=== PATIENT | female | born 1975 | race Asian ===

== ENCOUNTER → 2019-03-18 | Outpatient (CLI) | payer OTHER ==
[2019-03-18 17:23] LABS: BASO # 0.1 (0.0-0.2); BASO % 0.9 % (0.0-2.0); EOS # 0.2 (0.0-0.7); EOS % 2.8 % (0-4.0); GRAN # 2.6 (1.4-6.5); GRAN % 48.8 % (42.2-75.2); HEMOGLOBIN 10.9 g/dl (12.5-16.0); LYMPH # 2.1 (1.2-3.4); LYMPH % 39.5 % (20.0-51.0); MEAN CELL VOLUME 87 fl (80.0-100.0); MEAN CORPUSCULAR HEMOGLOBIN 28 pg (27.0-31.0); MEAN CORPUSCULAR HGB CONC 32 g/dl (33.0-37.0); MEAN PLATELET VOLUME 10.1 fl (7.4-10.4); MONO # 0.4 (0.1-0.6); MONO % 7.8 % (1.7-9.3); PLATELET COUNT 364 K/mm3 (130-400); RED BLOOD COUNT 3.97 M/mm3 (4.10-5.30); REDCELL DISTRIBUTION WIDTH-CV 14.3 % (11.5-14.5)
[2019-03-18 17:30] LABS: ALBUMIN 3.8 gm/dL (3.5-5.0); BILIRUBIN,TOTAL 0.3 mg/dL (0.0-1.0); CALCIUM 8.9 mg/dL (8.4-10.2); CREATININE, serum 0.69 (0.52-1.25); POTASSIUM 4.1 mmol/L (3.4-5.0)
[2019-03-18 17:36] LABS: HEMATOCRIT 34.6 % (37.0-47.0)
[2019-03-18 17:59] LABS: THYROID STIMULATING HORMONE 3.23 uIU/mL (0.465-4.680)
== END ==
LOC: ZCOL.LAB 16:42
PROVIDERS: Family Medicine
DX: R53.83 Other fatigue (principal)

== ENCOUNTER → 2019-03-24 | Outpatient (CLI) | payer OTHER ==
[2019-03-24 18:02] LABS: ALANINE AMINOTRANSFERASE 9 U/L (9-52); AST,SGOT 15 U/L (15-37); IRON,SERUM 58 ug/dL (35-150)
[2019-03-24 18:06] LABS: TOTAL IRON BINDING CAPACITY 431 ug/dL (265-497)
[2019-03-24 18:08] LABS: RETIC # 0.06 M/mm3 (0.02-0.16); RETIC % 1.5 % (0.5-3.52)
[2019-03-24 18:33] LABS: FERRITIN 6 ng/mL (6-137)
[2019-03-25 01:22] LABS: FOLATE (FOLIC ACID) 9.5 ng/mL (7.0-31.4)
[2019-03-25 01:41] LABS: TRANSFERRIN 308 mg/dL (192-382)
== END ==
LOC: ZCOL.LAB 16:46
PROVIDERS: Family Medicine
DX: D64.9 Anemia, unspecified (principal); R74.0 Nonspecific elevation of levels of transaminase and lactic acid dehydrogenase [LDH]

== ENCOUNTER → 2019-06-10 | Outpatient (CLI) | payer OTHER ==
[2019-06-10 16:54] LABS: BASO % 0.5 % (0.0-2.0); EOS # 0.1 (0.0-0.7); EOS % 2.4 % (0-4.0); GRAN # 3.6 (1.4-6.5); HEMOGLOBIN 11.7 g/dl (12.5-16.0); LYMPH # 1.6 (1.2-3.4); LYMPH % 27.6 % (20.0-51.0); MEAN CELL VOLUME 89 fl (80.0-100.0); MEAN CORPUSCULAR HEMOGLOBIN 28 pg (27.0-31.0); MEAN CORPUSCULAR HGB CONC 32 g/dl (33.0-37.0); MEAN PLATELET VOLUME 10.1 fl (7.4-10.4); MONO # 0.4 (0.1-0.6); MONO % 7.3 % (1.7-9.3); PLATELET COUNT 368 K/mm3 (130-400); RED BLOOD COUNT 4.14 M/mm3 (4.10-5.30); REDCELL DISTRIBUTION WIDTH-CV 13.5 % (11.5-14.5)
[2019-06-10 16:55] LABS: HEMATOCRIT 36.7 % (37.0-47.0)
== END ==
LOC: ZCOL.LAB 16:28
PROVIDERS: Family Medicine
DX: D50.9 Iron deficiency anemia, unspecified (principal); D51.9 Vitamin B12 deficiency anemia, unspecified

== ENCOUNTER 2019-06-18 12:55 | Outpatient (RCR) | payer OTHER ==
[~2019-06-18] VITALS: Ht 170.2 cm; Wt 99.0 kg
[2019-06-18 13:33] VITALS: BP 129/70; PULSE 75; TEMP 98.8
[2019-06-18] MEDS ORDERED: TAYTULLA 1 MG-1 EACH PO (13:57)
[2019-06-18] MEDS ORDERED: DOXYCYCLINE 10100 MG PO (14:02)
[2019-06-18] MEDS ORDERED: ROBAFEN DM 10120 ML PO (14:02)
[2019-06-18] MEDS ORDERED: TESSALON P100 MG/CAP PO (14:03)
--- NOTE | 2019-06-26 11:30 | NUR ---
Pt called to cancel further apts.per pt she had reaction and told her to stop.Will notify physician.
== END 2019-06-26 11:31 | disposition home or self-care (01) ==
LOC: EUO 12:55
DX: D50.9 Iron deficiency anemia, unspecified (principal); T50.905A Adverse effect of unspecified drugs, medicaments and biological substances, initial encounter; Z79.899 Other long term (current) drug therapy
CPT/HCPCS: J2916

== ENCOUNTER 2019-08-26 03:48 | Emergency (ER) | payer OTHER ==
[~2019-08-26] VITALS: Ht 170.2 cm; Wt 92.7 kg
[~2019-08-26 03:48] MED LIST: B-121000 MCG PO; DOXYCYCLINE 10100 MG PO; MASON NATURAL325 MG PO; ROBAFEN DM 10120 ML PO; TAYTULLA 1 MG-1 EACH PO; TESSALON P100 MG/CAP PO
[2019-08-26 05:03] LABS: BASO % 0.5 % (0.0-2.0); EOS # 0.1 (0.0-0.7); EOS % 1.6 % (0-4.0); GRAN # 4.8 (1.4-6.5); GRAN % 58.4 % (42.2-75.2); HEMATOCRIT 36.4 % (37.0-47.0); HEMOGLOBIN 12.2 g/dl (12.5-16.0); LYMPH # 2.6 (1.2-3.4); LYMPH % 31.8 % (20.0-51.0); MEAN CELL VOLUME 91 fl (80.0-100.0); MEAN CORPUSCULAR HEMOGLOBIN 31 pg (27.0-31.0); MEAN CORPUSCULAR HGB CONC 34 g/dl (33.0-37.0); MEAN PLATELET VOLUME 9.4 fl (7.4-10.4); MONO # 0.6 (0.1-0.6); MONO % 7.5 % (1.7-9.3); PLATELET COUNT 269 K/mm3 (130-400); REDCELL DISTRIBUTION WIDTH-CV 13.2 % (11.5-14.5)
[2019-08-26 05:09] LABS: ALBUMIN 3.8 gm/dL (3.5-5.0); BILIRUBIN,TOTAL 0.3 mg/dL (0.0-1.0); CALCIUM 8.9 mg/dL (8.4-10.2); CREATININE, serum 0.76 (0.52-1.25); POTASSIUM 3.6 mmol/L (3.4-5.0); TOTAL PROTEIN 7.1 gm/dL (6.4-8.2)
[2019-08-26] MEDS ORDERED: PEPCID 20MG TAB20 MG PO (05:27)
[2019-08-26 06:09] VITALS: BP 116/75; PULSE 69; TEMP 98.6
== END 2019-08-26 06:01 | disposition home or self-care (01) ==
LOC: COL.ER 03:48
PROVIDERS: Emergency Medicine
DX: K21.9 Gastro-esophageal reflux disease without esophagitis (principal)
CPT/HCPCS: J2405; J3010; J7040

== ENCOUNTER → 2019-09-24 | Outpatient (CLI) | payer OTHER ==
[~2019-09-24] VITALS: Ht 170.2 cm; Wt 87.3 kg
[~2019-09-24] MED LIST changes: +PEPCID 20MG TAB20 MG PO
[2019-09-24 10:12] VITALS: BP 96/70; PULSE 76
== END ==
LOC: LIGHT 09:54
DX: Z68.30 Body mass index [BMI] 30.0-30.9, adult (principal); M54.5 Low back pain; D64.9 Anemia, unspecified
CPT/HCPCS: G0463

== ENCOUNTER → 2020-05-31 | Outpatient (CLI) | payer OTHER | LOC: MC.RAD 08:59 | DX: Z12.31 Encounter for screening mammogram for malignant neoplasm of breast (principal) ==